=== PATIENT | female | born 1975 | race Asian ===

== ENCOUNTER 2022-09-02 11:03 | Emergency (ER) | payer BC, OTHER ==
[2022-09-02 11:14] VITALS: TEMP 98.2; BMI 45.1
[2022-09-02] MEDS ORDERED: ACETAMINOPHEN 1000 MG/100 ML BAG IVPB ONE (12:19)
[2022-09-02] MEDS ORDERED: ACETAMINOPHEN INJECTION 100 ML IVPB ONE (12:24)
[2022-09-02 13:43] LABS: BASO % 1.4 % (0-2.0); EOS % 1.7 % (0-4.5); HEMATOCRIT 40.6 % (32.4-45.2); HEMOGLOBIN 12.8 GM/dL (10.7-15.3); MCH 26.2 pg (25.7-33.7); MCHC 31.5 g/dl (32.0-36.0); MEAN CELL VOLUME 83.3 fl (80-96); MEAN PLT VOLUME 8.5 fl (7.5-11.1); NEUT % 61.9 % (42.8-82.8); PLATELET COUNT 404 10^3/uL (134-434); RBC 4.87 M/mm3 (3.60-5.2); RDW 14.4 % (11.6-15.6); WHITE BLOOD COUNT 10.8 K/mm3 (4.0-10.0)
[2022-09-02 14:01] LABS: POTASSIUM 4.1 mmol/L (3.5-5.1)
[2022-09-02 14:03] LABS: CALCIUM 9.2 mg/dL (8.5-10.1)
[2022-09-02 14:04] LABS: ALBUMIN 3.5 g/dl (3.4-5.0); BLOOD UREA NITROGEN 12.4 mg/dL (7-18); MAGNESIUM 2.3 mg/dL (1.8-2.4)
[2022-09-02 14:07] LABS: CREATININE 0.6 mg/dL (0.55-1.3)
[2022-09-02 14:09] LABS: TOT PROT 7.9 g/dl (6.4-8.2)
[2022-09-02 14:27] LABS: BILIRUBIN,TOTAL 0.6 mg/dL (0.2-1)
[2022-09-02] MEDS ORDERED: ACETAMINOPHEN 325 MG TABLET (FP) PO ONE (14:39)
[2022-09-02] MEDS ORDERED: LIDOCAINE 5% TOPICAL PATCH TP ONE (14:39)
[2022-09-02] MEDS ORDERED: ACETAMINOPHEN 325 MG TABLET (FP) ONE (14:42)
[2022-09-02] MEDS ORDERED: LIDOCAINE 5% TOPICAL PATCH ONE (14:42)
[2022-09-02 15:24] VITALS: BP 108/62; PULSE 92; RESP 19
[2022-09-02] MEDS ORDERED: KETOROLAC TROMETHAMINE 15 MG/ML VIAL IM ONE (15:42)
[2022-09-02] MEDS ORDERED: KETOROLAC TROMETHAMINE 15 MG/ML VIAL ONE (16:09)
[2022-09-02 16:15] LABS: INR 1.1 (0.83-1.09); PROTHROMBIN TIME (PATIENT) 12.7 SEC (9.7-13.0)
[2022-09-02 16:18] LABS: ACTIVATED PTT 45.8 SECONDS (25.2-36.5)
== END 2022-09-02 16:43 | disposition home or self-care (01) ==
LOC: JER 11:03
PROC: 3E0233Z Introduction of Anti-inflammatory into Muscle, Percutaneous Approach (ICD-10-PCS; principal; 2022-09-02)
DX: M79.602 Pain in left arm (principal); R07.89 Other chest pain; M54.9 Dorsalgia, unspecified; M62.838 Other muscle spasm
CPT/HCPCS: 36415; 71046-TC-FY; 73030-TC-LT-FY; 73060-TC-LT-FY; 80053; 83735; 84443; 84484; 85025; 85610; 85730; 93005; 93010; 93971; 99285-25